=== PATIENT | male | born 1965 | race Caucasian/White ===

== ENCOUNTER → 2023-10-08 09:15 | Outpatient (REF) | payer BC, SELFPAY | LOC: RAD 09:15 | PROVIDERS: ATTENDING PHYSICIAN Family Medicine | DX: J40 Bronchitis, not specified as acute or chronic (principal); R06.2 Wheezing; R05.3 Chronic cough | CPT/HCPCS: 71046 ==

== ENCOUNTER → 2024-01-14 06:28 | Outpatient (REF) | payer BC, SELFPAY ==
[2024-01-14 08:07] LABS: % Basophils 0.5 % (0-2); % Eosinophils 1.8 % (0-6); % Immature Granulocytes 0.8 % (0-0.5); % Lymphocytes 30.4 % (20.5-51.1); % Monocytes 7.3 % (1.7-9.3); % Neutrophils 59.2 % (42.2-75.2); Absolute Eosinophils 0.1 10^3/uL (0-0.7); Absolute Immature Granulocytes 0.1 10^3/uL (0-0.05); Absolute Lymphocytes 1.8 10^3/uL (1.2-3.4); Absolute Monocytes 0.4 10^3/uL (0.1-0.6); Absolute Neutrophils 3.6 10^3/uL (1.4-6.5); Hematocrit 46.5 % (39.0-52.0); Hemoglobin 15.8 g/dL (13.0-18.0); Mean Corpuscular Hgb 31.5 pg (27.0-31.0); Mean Corpuscular Volume 92.8 fL (80.0-94.0); Mean Platelet Volume 9.6 fL (7.4-10.4); Nucleated Red Blood Cells % 0 % (-); Platelet Count 175 10^3/uL (130-400); Red Blood Cell Count 5.01 10^6/uL (4.70-6.10); Red Cell Dist. Width 12.6 % (11.5-14.5); White Blood Cell Count 6.1 10^3/uL (4.8-10.8)
[2024-01-14 08:37] LABS: ALT (SGPT) 38 U/L (0-50); AST (SGOT) 30 U/L (17-59); Albumin 4.7 g/dl (3.5-5.0); Alkaline Phosphatase 52 U/L (38-126); Blood Urea Nitrogen 13 mg/dl (9-20); Calcium 9.8 mg/dl (8.4-10.2); Carbon Dioxide 26 mmol/L (22-30); Chloride 103 mmol/L (98-107); Glucose 99 mg/dl (70-99); HDL Cholesterol 39 mg/dl; LDL Cholesterol, Calculated 109 mg/dl; Potassium 5.4 mmol/L (3.5-5.1); Sodium 144 mmol/L (135-145); Total Bilirubin 0.8 mg/dl (0.2-1.3); Total Cholesterol 184 mg/dl (50-199); Total Protein 7.4 g/dl (6.3-8.2); Triglyceride 182 mg/dl (10-149); Very Low Density Lipoprotein 36 mg/dl (0-30); eGFR > 60.00
[2024-01-14 09:35] LABS: PSA, Total - Screen 0.23 ng/ml (0.0-4.0)
[2024-01-14 09:51] LABS: Glycohemoglobin (HgbA1c) 5.4 % (4.0-5.6)
== END ==
LOC: REG 06:28
PROVIDERS: ATTENDING PHYSICIAN Family Medicine
DX: R73.9 Hyperglycemia, unspecified (principal); G40.909 Epilepsy, unspecified, not intractable, without status epilepticus; E78.00 Pure hypercholesterolemia, unspecified; E66.01 Morbid (severe) obesity due to excess calories; Z79.899 Other long term (current) drug therapy; Z12.5 Encounter for screening for malignant neoplasm of prostate
CPT/HCPCS: 36415; 80053; 80061; 83036; 85025; G0103

== ENCOUNTER → 2024-02-10 14:08 | Outpatient (REF) | payer BC, SELFPAY | LOC: MRI 3T 14:08 | PROVIDERS: ATTENDING PHYSICIAN Family Medicine; REFERRING PHYSICIAN Orthopaedic Surgery | DX: M25.561 Pain in right knee (principal) | CPT/HCPCS: 73721 ==

== ENCOUNTER → 2024-03-31 06:25 | Outpatient (REF) | payer BC, SELFPAY ==
[2024-03-31 08:16] LABS: Potassium 4.7 mmol/L (3.5-5.1)
== END ==
LOC: REG 06:25
PROVIDERS: ATTENDING PHYSICIAN Physician Assistant; FAMILY PHYSICIAN Family Medicine
DX: E87.5 Hyperkalemia (principal)
CPT/HCPCS: 36415; 84132

== ENCOUNTER 2024-04-07 06:08 | Inpatient (IN) | payer BC, SELFPAY ==
[2024-03-26 14:29] VITALS: BMI 41.5
[2024-03-26 14:59] LABS: Hematocrit 46.5 % (39.0-52.0); Hemoglobin 15.9 g/dL (13.0-18.0); Mean Corp Hgb Conc. 34.2 g/dL (33.0-37.0); Mean Corpuscular Hgb 31.5 pg (27.0-31.0); Mean Corpuscular Volume 92.1 fL (80.0-94.0); Mean Platelet Volume 9.6 fL (7.4-10.4); Platelet Count 189 10^3/uL (130-400); Red Blood Cell Count 5.05 10^6/uL (4.70-6.10); Red Cell Dist. Width 12.5 % (11.5-14.5); White Blood Cell Count 7.7 10^3/uL (4.8-10.8)
[2024-03-26 15:58] LABS: ALT (SGPT) 29 U/L (0-50); AST (SGOT) 24 U/L (17-59); Alkaline Phosphatase 46 U/L (38-126); Blood Urea Nitrogen 24 mg/dl (9-20); Calcium 9.8 mg/dl (8.4-10.2); Carbon Dioxide 26 mmol/L (22-30); Chloride 103 mmol/L (98-107); Estimated Creatinine Clearance 123 ml/min; Glucose 95 mg/dl (70-99); Potassium 5.6 mmol/L (3.5-5.1); Sodium 144 mmol/L (135-145); Total Bilirubin 0.5 mg/dl (0.2-1.3); Total Protein 8.1 g/dl (6.3-8.2); eGFR > 60.00
[2024-03-27 10:39] LABS: Glycohemoglobin (HgbA1c) 5.3 % (4.0-5.6)
--- NOTE | 2024-03-30 14:11 | VNURNOTE ---
Rec'ed call from patient inquiring about VN. Per chart review, he is scheduled [facility] on 04/[address] Rodriguez. Patient will stay overnight. Patient confirms [facility] Explained to patient that
[facility] not warranted as outpt already scheduled day after DC. Pt verbalized understanding. [facility] remains available if DC plans change.
[2024-04-02 13:45] VITALS: BMI 41.5
[2024-04-07] VITALS (21 sets, daily range): BP systolic 116–160; BP diastolic 72–102; PULSE 95; O2SAT 96; BMI 41.5
[2024-04-07] MEDS: CELEBREX 200 MG PO (06:25)
[2024-04-07] MEDS: TYLENOL 650 MG PO ×5 (06:26→23:13)
[2024-04-07] MEDS: NORMOSOL-R/PLASMALYTE-A 1000 IV ×2 (06:26→12:30)
--- NOTE | 2024-04-07 07:29 | W.DS.TRANS ---
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
-
Discharge Instructions:
Sleep Apnea Risk High
Discharge Diagnosis/Procedures R TKA Dr. Rodriguez 04/07/24
Diet As tolerated
Activity With Walker
Additional Activity SCD venous compression device when sitting for
prolonged periods and sleeping
Driving Restrictions No driving
Bathing Restrictions OK to Shower
Other Services PT
Instructions:
Stand-Alone Forms: Total Hip/Knee Replacement D/C
Changes to Home Medications: Yes
Discharge Medications:
DC Medications w/original date entered in [employer]
divalproex 500 mg tablet,delayed release 1,000 mg PO HS 06/08/18
topiramate 100 mg tablet (Topamax) 100 mg PO HS 06/08/18
atorvastatin 10 mg tablet (Lipitor) 10 mg PO HS 04/01/24
Saccharomyces boulardii 250 mg capsule (Florastor) 250 mg PO BID #1 cap 04/07/24
acetaminophen 325 mg tablet (Tylenol) 650 mg (2 x 325 mg) PO QID #1 tab 04/07/24
aspirin 325 mg tablet 325 mg PO DAILY blood clot prevention #1 tab 04/07/24
cefadroxil 500 mg capsule 500 mg PO BID infection prevention #14 caps 04/07/24
celecoxib 100 mg capsule 100 mg PO BID Anti-inflammatory #14 caps 04/07/24
dexamethasone 4 mg tablet 4 mg PO BID inflammation #6 tabs 04/07/24
docusate sodium 100 mg capsule (Colace) 100 mg PO BID stool softner #1 cap 04/07/24
magnesium hydroxide 400 mg/5 mL oral suspension (Milk of Magnesia) 30 ml PO HS PRN Constipation #1 mL 04/07/24
mupirocin 2 % topical ointment 1 applic topical BID 04/07/24
ondansetron 4 mg disintegrating tablet 4 mg PO Q6H PRN n/v #20 tabs 04/07/24
oxycodone 5 mg tablet 5 mg PO Q6H PRN 1 tab moderate pain, 2 tabs severe pain #30 tabs 04/07/24
sennosides 8.6 mg tablet (Senokot) 17.2 mg (2 x 8.6 mg) PO BID laxative #2 tabs 04/07/24
Home Medication Changes
Saccharomyces boulardii 250 mg capsule (Florastor) 250 mg PO BID #1 cap 04/07/24
acetaminophen 325 mg tablet (Tylenol) 650 mg (2 x 325 mg) PO QID #1 tab 04/07/24
aspirin 325 mg tablet 325 mg PO DAILY blood clot prevention #1 tab 04/07/24
cefadroxil 500 mg capsule 500 mg PO BID infection prevention #14 caps 04/07/24
celecoxib 100 mg capsule 100 mg PO BID Anti-inflammatory #14 caps 04/07/24
dexamethasone 4 mg tablet 4 mg PO BID inflammation #6 tabs 04/07/24
docusate sodium 100 mg capsule (Colace) 100 mg PO BID stool softner #1 cap 04/07/24
magnesium hydroxide 400 mg/5 mL oral suspension (Milk of Magnesia) 30 ml PO HS PRN Constipation #1 mL 04/07/24
mupirocin 2 % topical ointment 1 applic topical BID 04/07/24
ondansetron 4 mg disintegrating tablet 4 mg PO Q6H PRN n/v #20 tabs 04/07/24
oxycodone 5 mg tablet 5 mg PO Q6H PRN 1 tab moderate pain, 2 tabs severe pain #30 tabs 04/07/24
sennosides 8.6 mg tablet (Senokot) 17.2 mg (2 x 8.6 mg) PO BID laxative #2 tabs 04/07/24
Pending Results: No
[2024-04-07] MEDS: ROXICODONE 5 MG PO (09:49)
[2024-04-07] MEDS: ROXICODONE 2.5 MG PO ×3 (12:29→21:49)
[2024-04-07] MEDS: ANCEF 5 IV ×2 (13:34→21:54)
--- NOTE | 2024-04-07 14:47 | CM ---
Reviewed the chart notes and spoke with the patient at the bedside. The patient is s/p right total knee arthroplasty. The patient resides with his spouse and son in a one story home with a total of three steps to enter. The patient has a rolling
walker and cane at discharge. The patient report no VN/SNF in the past. The patient confirmed his pharmacy of choice is the [facility] [address] [place]. The patient has outpatient therapy set for Friday. CM continues to be available to patient/family
and is monitoring medical plan for needs at discharge.
Plan: Discharge to home with outpatient therapy to start Friday in the ambulatory center.
[2024-04-07] MEDS: ASPIRIN 325 MG PO (17:04)
[2024-04-07] MEDS: ROXICODONE PO (17:04)
--- NOTE | 2024-04-07 18:30 | PTCARENOTE ---
Pt c/o dizziness/ feeling like he's floating. VSS. BP 156/[address] Dillon notified. New orders received. Care remains ongoing.
[2024-04-07] MEDS: COLACE 100 MG PO (20:23)
[2024-04-07] MEDS: SENOKOT 17.2 MG PO (20:24)
[2024-04-07] MEDS: ANTIVERT 25 MG PO (20:24)
[2024-04-07] MEDS: DECADRON 6 MG IV (20:24)
[2024-04-07] MEDS: BACTROBAN 2% OINTMENT 1 APPLIC NASAL (20:25)
[2024-04-07] MEDS: TORADOL 15 MG IV (20:25)
[2024-04-07] MEDS: ZOFRAN 4 MG IV (21:51)
[2024-04-07] MEDS: LIPITOR 10 MG PO (21:53)
[2024-04-07] MEDS: DEPAKOTE (12 HR RELEASE) 1000 MG PO (21:53)
[2024-04-07] MEDS: PEPCID 20 MG PO (21:54)
[2024-04-07] MEDS: TOPAMAX 100 MG PO (22:07)
[2024-04-08 02:55] VITALS: BP 144/88
[2024-04-08] MEDS: TYLENOL 650 MG PO ×3 (04:51→12:17)
[2024-04-08] MEDS: DECADRON IV (05:37)
[2024-04-08] MEDS: TORADOL IV (05:37)
[2024-04-08] MEDS: ROXICODONE 2.5 MG PO ×2 (08:17→12:17)
[2024-04-08] MEDS: TORADOL 15 MG IV (08:19)
[2024-04-08 08:20] VITALS: BP 182/96
[2024-04-08] MEDS: ASPIRIN 325 MG PO (08:20)
[2024-04-08] MEDS: DECADRON 6 MG IV (08:20)
[2024-04-08] MEDS: SENOKOT 17.2 MG PO (08:20)
[2024-04-08] MEDS: CELEBREX 200 MG PO (08:21)
[2024-04-08] MEDS: BACTROBAN 2% OINTMENT 1 APPLIC NASAL (08:21)
[2024-04-08] MEDS: COLACE 100 MG PO (08:21)
[2024-04-08] MEDS: ROXICODONE 5 MG PO (08:23)
--- NOTE | 2024-04-08 09:25 | W.PN.ORTHO ---
Today's Communication / Plan
-
d/c
Assessment
.
Distal Motor Intact: Yes
Dressing:
Clean, dry and intact.
Plan
.
Surgery / Date: Ayan Rodriguez 04/07/24
DVT Prophylaxis: Aspirin
Activity:
Out of bed.
PT/OT
Discharge Plan: Home w/ Outpatient PT
Subjective
.
.:
Patient resting comfortably.
Vital Signs and Labs
.
Vital Signs and Labs:
Lab Results
03/26/24 14:10
03/26/24 14:10
Temp Pulse Resp BP Pulse Ox
97.8 F 88 16 182/96 96
04/08/24 08:20 04/08/24 08:20 04/08/24 08:20 04/08/24 08:20 04/08/24 08:20
Non-invasive Hgb result: 11.5
Physical Exam
-
HEENT: No pallor, cyanosis, or jaundice. Throat clear.
NECK: Supple. No JVD.
RESPIRATORY: Lungs clear to auscultation.
CVS: S1, S2 normal. RRR.� No murmur, rub or gallop.
ABDOMEN: Soft, non-tender. No distension. BS+/normal.
EXTREMITIES: strength equal, no calf pain with palpation
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 No focal deficits. site damage prevention technician grossly intact
[2024-04-08 10:12] VITALS: BP 183/92; PULSE 94; O2SAT 95
--- NOTE | 2024-04-08 10:34 | CM ---
Reviewed the chart notes and spoke with the patient and spouse at the bedside. Patient is anticipated to discharge to home today with outpatient therapy starting tomorrow. CM continues to be available to patient/family and is monitoring medical
plan for needs at discharge.
Plan: Discharge to home today. Patient's spouse and daughter will provide transportation.
[2024-04-08 10:39] VITALS: BP 154/91; PULSE 88
[2024-04-08 13:09] VITALS: BP 186/89
== END 2024-04-08 14:00 | disposition home or self-care (01) | DRG 470 ==
LOC: 2 SOUTH 06:08
PROVIDERS: ADMITTING PHYSICIAN Orthopaedic Surgery; FAMILY PHYSICIAN Family Medicine
PROC: 0SRC069 Replacement of Right Knee Joint with Oxidized Zirconium on Polyethylene Synthetic Substitute, Cemented, Open Approach (ICD-10-PCS; 2024-04-07)
DX: M17.0 Bilateral primary osteoarthritis of knee (principal); Z68.41 Body mass index [BMI] 40.0-44.9, adult; E66.01 Morbid (severe) obesity due to excess calories
CPT/HCPCS: 36415; 73560; 80053; 83036; 85027; 87070; 93005; 97110; 97116; 97162; 97166; 97530; C1713; C1776

== ENCOUNTER 2024-04-19 06:58 | Outpatient (RCR) | payer BC, SELFPAY | END 2024-04-19 23:59 | disposition home or self-care (01) | LOC: RPT 06:58 | PROVIDERS: ATTENDING PHYSICIAN Orthopaedic Surgery; FAMILY PHYSICIAN Family Medicine | DX: Z47.1 Aftercare following joint replacement surgery (principal); Z96.651 Presence of right artificial knee joint; M17.11 Unilateral primary osteoarthritis, right knee | CPT/HCPCS: 97010; 97110; 97116; 97162; 97530 ==

== ENCOUNTER → 2024-05-12 16:49 | Outpatient (REF) | payer BC, SELFPAY | LOC: RCS 16:49 | PROVIDERS: ATTENDING PHYSICIAN Internal Medicine Cardiovascular Disease; FAMILY PHYSICIAN Family Medicine | DX: I45.10 Unspecified right bundle-branch block (principal); R94.31 Abnormal electrocardiogram [ECG] [EKG] | CPT/HCPCS: 93306 ==

== ENCOUNTER 2024-05-17 06:59 | Outpatient (RCR) | payer BC, SELFPAY | END 2024-05-17 23:59 | disposition home or self-care (01) | LOC: RPT 06:59 | PROVIDERS: ATTENDING PHYSICIAN Orthopaedic Surgery; FAMILY PHYSICIAN Family Medicine | DX: Z47.1 Aftercare following joint replacement surgery (principal); M17.11 Unilateral primary osteoarthritis, right knee (principal); Z96.651 Presence of right artificial knee joint; R26.89 Other abnormalities of gait and mobility | CPT/HCPCS: 97010; 97110; 97112 ==

== ENCOUNTER 2024-05-24 06:38 | Outpatient (RCR) | payer BC, SELFPAY | END 2024-05-24 08:04 | disposition home or self-care (01) | LOC: RPT 06:38 | PROVIDERS: ATTENDING PHYSICIAN Orthopaedic Surgery; FAMILY PHYSICIAN Family Medicine | DX: Z47.1 Aftercare following joint replacement surgery (principal); Z96.651 Presence of right artificial knee joint; Z73.6 Limitation of activities due to disability; R26.89 Other abnormalities of gait and mobility; M17.11 Unilateral primary osteoarthritis, right knee | CPT/HCPCS: 97010; 97110; 97112 ==

== ENCOUNTER → 2024-06-03 13:26 | Outpatient (REF) | payer BC, SELFPAY ==
--- NOTE | 2024-06-04 17:43 | EEG.RPT ---
Electroencephalogram Report
Recording
Date of EE06/03/24
Type of EEG: Routine and Ambulatory
Length of EEG recordin mins
Done with Video Recording: Yes
Patient Status: Outpatient
Recording Conditions: Awake and Drowsy
Hyperventilation Performed: Yes
Photic Stimulation Performed: Yes
Report
History: He is a 58 year old man with epilepsy, right temporal lobectomy
Background: posterior dominant rhythm, 10 Hz alpha activity, symmetric and reactive.
Sleep: none
Focal/rhythmic/epileptiform: none
Seizures: none
Hyperventilation: symmetric slowing
Photic stim: no background change
Impression: normal EEG
Clinical correlation: a normal EEG does not rule out epilepsy
== END ==
LOC: EEG 13:26
PROVIDERS: ATTENDING PHYSICIAN Psychiatry & Neurology Neurology; FAMILY PHYSICIAN Family Medicine
DX: G40.209 Localization-related (focal) (partial) symptomatic epilepsy and epileptic syndromes with complex partial seizures, not intractable, without status epilepticus (principal)
CPT/HCPCS: 95816

== ENCOUNTER → 2024-07-31 07:09 | Outpatient (REF) | payer BC, SELFPAY ==
[2024-07-31 08:38] LABS: Blood Urea Nitrogen 14 mg/dl (9-20); Calcium 9.2 mg/dl (8.4-10.2); Carbon Dioxide 26 mmol/L (22-30); Chloride 109 mmol/L (98-107); Glucose 98 mg/dl (70-99); Potassium 4.5 mmol/L (3.5-5.1); Sodium 143 mmol/L (135-145); eGFR > 60.00
== END ==
LOC: REG 07:09
PROVIDERS: ATTENDING PHYSICIAN Internal Medicine Cardiovascular Disease; FAMILY PHYSICIAN Family Medicine
DX: E78.00 Pure hypercholesterolemia, unspecified (principal)
CPT/HCPCS: 36415; 80048

== ENCOUNTER 2024-08-15 22:34 | Emergency (ER) | payer BC, SELFPAY ==
[2024-08-15 22:41] VITALS: BP 121/85
[2024-08-15 23:00] LABS: % Basophils 0.7 % (0-2); % Eosinophils 0.7 % (0-6); % Immature Granulocytes 0.7 % (0-0.5); % Lymphocytes 16.5 % (20.5-51.1); % Monocytes 14.4 % (1.7-9.3); Absolute Lymphocytes 0.7 10^3/uL (1.2-3.4); Absolute Monocytes 0.6 10^3/uL (0.1-0.6); Absolute Neutrophils 2.9 10^3/uL (1.4-6.5); Hematocrit 42.2 % (39.0-52.0); Hemoglobin 14.5 g/dL (13.0-18.0); Mean Corp Hgb Conc. 34.4 g/dL (33.0-37.0); Mean Corpuscular Hgb 29.9 pg (27.0-31.0); Mean Platelet Volume 9.1 fL (7.4-10.4); Nucleated Red Blood Cells % 0 % (-); Platelet Count 134 10^3/uL (130-400); Red Blood Cell Count 4.85 10^6/uL (4.70-6.10); Red Cell Dist. Width 13.2 % (11.5-14.5); White Blood Cell Count 4.3 10^3/uL (4.8-10.8)
[2024-08-15 23:16] LABS: ALT (SGPT) 51 U/L (0-50); AST (SGOT) 40 U/L (17-59); Albumin 4.1 g/dl (3.5-5.0); Alkaline Phosphatase 43 U/L (38-126); Blood Urea Nitrogen 17 mg/dl (9-20); Carbon Dioxide 21 mmol/L (22-30); Chloride 108 mmol/L (98-107); Glucose 105 mg/dl (70-99); Lipase 52 U/L (23-300); Potassium 3.9 mmol/L (3.5-5.1); Sodium 138 mmol/L (135-145); Total Bilirubin 0.7 mg/dl (0.2-1.3); Total Protein 6.8 g/dl (6.3-8.2); eGFR > 60.00
[2024-08-15 23:17] LABS: COVID-19 Antigen Negative (Negative)
[2024-08-16 01:30] VITALS: BP 126/80
[2024-08-16 03:48] VITALS: BP 128/82
--- NOTE | 2024-08-16 04:35 | ED.GENMED ---
History of Present Illness
General
Chief Complaint: Abdominal Symptoms
Source: patient
Exam Limitations: none
Time Seen by Provider: 08/16/24 04:29
Nursing documentation reviewed up to this point in time: agreed with
History of Present Illness
History of Present Illness:
58 y/o male with hx of seizure disorder, pre-diabetes, hlp presents to the ER with diarrhea for the past 3 days as well as body aches. Pt is concerned he has influenza. This started spontaneously. He denies any sick contacts, recent abx use, recent
travel outside the country, rectal bleeding, nausea, vomting, chest pain, shortness of breath, fevers or chills. Pt has not taken anything for these symptoms. He has to go every 30 min or so.
Past History
Past History
ED Past Medical History: Hypercholesterolemia and Other (Seizure disorder (hasn't had a seizure since a node was removed from right temporal area 2006), Pre Diabetic)
ED Past Surgical History: None
Social History
Tobacco: Non-smoker
Alcohol: None
Drug: None
Personal:
Living: with family
Employment: Employed ([employer] house[employer])
Review of Systems
Review of Systems
All Other Systems: ROS reviewed and negative except as documented in HPI and ROS
Phy Exam
Physical Exam
Physical Exam:
General: Patient is well appearing and in no acute distress; non-toxic
Skin: Warm and dry, no rashes or lesions
Head: Normocephalic, atraumatic
Eyes: Sclera non-icteric. EOMs intact.
Cardiac: Regular rate and rhythm, no murmurs
Peripheral Vascular: No lower extremity swelling or edema
Pulm: Normal respiratory effort
Neuro: CN II-XII intact, no focal neurologic deficits.
Psychiatric: Appropriate mood and affect.
Course
Orders/Labs/Results
Orders:
Orders
08/15/24 22:53
COVID-19 Antigen Urgent
Source: Nasal Swab
Complete Blood Count/With Diff Urgent
Comprehensive Metabolic Panel Urgent
Lipase Urgent
Influenza A+B Rapid Molecular Urgent
NAVDEEP Source: Nasal Swab
Specimen Description:
08/16/24 04:50
0.9% Sodium Chloride 1000 ml [Nss] 1,000 ml IV BOLUS
08/16/24 05:45
Stool Culture Urgent
NAVDEEP Source: Feces/Stool
Specimen Description:
Date Specimen was Collected: 08/16/24
Time Specimen was Collected: 05:43
Abnormal Lab Results
08/15/24
22:53
WBC 4.3 L 10^3/uL
(4.8-10.8)
Absolute Lymphs (auto) 0.7 L 10^3/uL
(1.2-3.4)
Immature Gran % 0.7 H %
(0-0.5)
Lymphocytes % 16.5 L %
(20.5-51.1)
Monocytes % 14.4 H %
(1.7-9.3)
Chloride 108 H mmol/L
(98-107)
Carbon Dioxide 21 L mmol/L
(22-30)
Glucose 105 H mg/dl
(70-99)
ALT 51 H U/L
(0-50)
08/15/24 22:53
08/15/24 22:53
Vital Signs
Initial and Last Documented VS:
Initial Vital Signs
Temp Pulse Resp BP Pulse Ox
98.6 F 88 18 121/85 96
08/15/24 22:41 08/15/24 22:41 08/15/24 22:41 08/15/24 22:41 08/15/24 22:41
Last Documented Vital Signs
Temp Pulse Resp BP Pulse Ox
98.2 F 72 18 113/66 100
08/16/24 07:05 08/16/24 07:05 08/16/24 07:05 08/16/24 07:05 08/16/24 07:05
MDM/Problems Addressed
Differential Diagnosis Includes:
ddx include gastroenteritis, colitis, viral syndrome, IBS,
MDM/Problems Addressed:
58 y.o male presents to the ER with concerns of diarrhea for past 3 days. H+P as above. Symptoms consistent with viral syndrome. He has no abdominal tenderness on exam, no indication for ct scan at this time. No indication for abx coverage. Pt given
IV fluids, stool culture sent off for further evaluation. CMP unremarkable no evidence of LAMAR or significant electrolyte derangement. Discussed IV hydration and brat diet. Pt stable for discharge.
*Pulse Oximetry
Patient hypoxic: no
*Critical Care Note
Total Time (30-74mins, 75-104mins- exclusive of procedures): Not Applicable
Data Reviewed
Review of Other/Old Records Reveals: Records (04/08/24 pt admitted for knee replacement)
ED Attending Note
-
Portions of this chart may have been created with voice recognition software.� Occasional wrong word or��sound alike� substitutions may have occurred due to the inherent limitations of voice recognition software.
Discharge Plan
Departure
Patient Disposition: Home (Routine Discharge)
Date of Disposition: 08/16/24
Time of Disposition: 06:09
Patient with high blood pressure during this ER visit?: Yes
Condition: Good
Discharge Problem:
Diarrhea
Instructions: Acute Diarrhea, BLOOD PRESSURE
Prescriptions:
No Action
divalproex 500 MG tablet,delayed release (DR/EC)
1,000 mg PO HS
topiramate [Topamax] 100 MG tablet
100 mg PO HS
atorvastatin [Lipitor] 10 mg Tablet
10 mg PO HS
mupirocin 2 % Ointment
1 applic TOPICAL BID
Patient Comments:
started treatment friday04/04/24 and completed BID
aspirin 325 mg tablet
325 mg PO DAILY Qty: 1 0RF
Rx Instructions:
Take with food
cefadroxil 500 mg capsule
500 mg PO BID Qty: 14 0RF
Rx Instructions:
*Take w/ food
*Take w/ probiotic
*POST-OP USE
celecoxib 100 mg capsule
100 mg PO BID Qty: 14 0RF
Rx Instructions:
take with food
sennosides [Senokot] 8.6 mg tablet
17.2 mg PO BID Qty: 2 0RF
acetaminophen [Tylenol] 325 mg tablet
650 mg PO QID Qty: 1 0RF
Rx Instructions:
SCHEDULED DOSING
magnesium hydroxide [Milk of Magnesia] 400 mg/5 mL suspension
30 ml PO HS PRN (Reason: Constipation) Qty: 1 0RF
dexamethasone 4 mg tablet
4 mg PO BID Qty: 6 0RF
Rx Instructions:
take with food
post-op use only
docusate sodium [Colace] 100 mg capsule
100 mg PO BID Qty: 1 0RF
ondansetron [ondansetron] 4 mg tablet,disintegrating
4 mg PO Q6H PRN (Reason: n/v) Qty: 20 0RF
Rx Instructions:
take 1/2h b/f pain med if recurrent nausea
allow to dissolve in mouth w/o water
oxycodone 5 mg tablet
5 mg PO Q6H PRN (Reason: 1 tab moderate pain, 2 tabs severe pain) Qty: 30 0RF
Rx Instructions:
Ongoing therapy
Saccharomyces boulardii [Florastor] 250 mg capsule
250 mg PO BID Qty: 1 0RF
Referrals:
Alfred Keys MD [Family Provider] -
Stand Alone Forms: Return to Work
Activity Restrictions/Additional Instructions:
CBC and CMP blood work as unremarkable.
Please stay well-hydrated.
Please follow-up with your primary care provider in 1 to 2 weeks.
PLEASE RETURN EMERGENCY DEPARTMENT SHOULD YOU DEVELOP CHEST PAIN, SHORTNESS OF BREATH, RECTAL BLEEDING, LIGHTHEADEDNESS, RECTAL BLEEDING, DIZZINESS, ABDOMINAL PAIN, FEVERS OR CHILLS, OR ANY SIGNS OR SYMPTOMS WORRISOME TO YOU.
Interventions
Interventions:
*Risk Screen - Suicide Last Done: 08/15/24 22:43
*General Assessment Last Done: 08/15/24 22:43
*Neglect/Abuse Screening Last Done: 08/15/24 22:43
*ED- Fall Risk Assessment Last Done: 08/16/24 04:42
*ED COVID-19 Vaccine History Last Done: 08/15/24 22:43
*Nursing Disposition Last Done: 08/16/24 07:05
[id number] Assessment Last Done: 08/16/24 04:42
Discharge Date and Time
Discharge Date/Time: 08/16/24 07:05
Print Language: BELARUSIAN
[2024-08-16 04:44] VITALS: BMI 39.5
[2024-08-16] MEDS: NSS 1000 IV (05:10)
[2024-08-16 07:05] VITALS: BP 113/66
== END 2024-08-16 07:05 | disposition home or self-care (01) ==
LOC: EMR 22:34
PROVIDERS: EMERGENCY PHYSICIAN Student in an Organized Health Care Education/Training Program; FAMILY PHYSICIAN Family Medicine
DX: R19.7 Diarrhea, unspecified (principal); E78.00 Pure hypercholesterolemia, unspecified; Z11.52 Encounter for screening for COVID-19
CPT/HCPCS: 99283; 80053; 83690; 85025; 87045; 87046; 87427; 87502; 87811

== ENCOUNTER → 2024-08-19 08:05 | Outpatient (REF) | payer BC, SELFPAY | LOC: HWRCS 08:05 | PROVIDERS: ATTENDING PHYSICIAN Internal Medicine Cardiovascular Disease; FAMILY PHYSICIAN Family Medicine | DX: I45.10 Unspecified right bundle-branch block (principal) | CPT/HCPCS: 78452; 93017; A9500; J2785 ==

== ENCOUNTER → 2024-09-25 07:19 | Outpatient (REF) | payer BC, SELFPAY ==
[2024-09-25 08:34] LABS: Depakane 27.1 ug/ml (50.0-120.0)
[2024-09-25 08:48] LABS: ALT (SGPT) 17 U/L (0-50); AST (SGOT) 16 U/L (17-59); Albumin 4.3 g/dl (3.5-5.0); Alkaline Phosphatase 53 U/L (38-126); Blood Urea Nitrogen 12 mg/dl (9-20); Calcium 9.6 mg/dl (8.4-10.2); Carbon Dioxide 22 mmol/L (22-30); Chloride 113 mmol/L (98-107); Glucose 109 mg/dl (70-99); Potassium 4.9 mmol/L (3.5-5.1); Sodium 145 mmol/L (135-145); Total Bilirubin 0.5 mg/dl (0.2-1.3); Total Protein 7.4 g/dl (6.3-8.2); eGFR > 60.00
[2024-09-25 08:55] LABS: Vitamin D, 25-OH*** 27.3 ng/mL (30-80)
[2024-09-27 18:39] LABS: Topiramate (Topamax) 6.8 ug/mL (5.0-20.0)
== END ==
LOC: REG 07:19
PROVIDERS: ATTENDING PHYSICIAN Psychiatry & Neurology Neurology; FAMILY PHYSICIAN Family Medicine
DX: G40.209 Localization-related (focal) (partial) symptomatic epilepsy and epileptic syndromes with complex partial seizures, not intractable, without status epilepticus (principal)
CPT/HCPCS: 36415; 80053; 80164; 80201; 82306